=== PATIENT | male | born 1970 | race Hispanic/Latino ===

== ENCOUNTER 2022-02-25 17:16 | Emergency (ER) | payer BC, SELFPAY ==
[2022-02-25] VITALS (13 sets, daily range): BP systolic 153–194; BP diastolic 100–114; PULSE 84–121; RESP 14–25; TEMP 36.4–37.2; O2SAT 95–100
--- NOTE | ~2022-02-25 | CT_ITS ---
EXAMINATION: CT abdomen pelvis wo con DATE: 02/25/2022 20:40 INDICATION: Abdominal pain. TECHNIQUE: Computed tomography (CT) of the abdomen and pelvis was performed without intravenous contr ast. Automated exposure control and iterative reconstruction technique were employed. The dose-length product was 587.41 mGy-cm. COMPARISON: None. FINDINGS: The visualized portions of the lung bases demonstrate mild atelectasis. No pleural effusion . The heart size is normal. No pericardial effusion. The liver is enlarged with innumerable cysts blaise suring up to 15.0 cm. The gallbladder is not identified. The spleen, pancreas, and adrenal glands are normal. Right kidney measures 20.4 x 7.0 x 10.7 cm. Left kidney measures 19.0 x 8.4 x 10.6 cm. There are innumerable cysts and hemorrhagic cysts in the kidneys. There are multiple masses in each kidney measuring soft tissue attenuation measuring up to 2.0 cm on the right that are most likely also hemo rrhagic cysts. There are parenchymal calcifications in the kidneys. There is mild left hydronephrosis . There is diverticulosis of the colon without evidence of diverticulitis. There are no dilated loops of bowel. The appendix is normal in the right femoral canal. There is trace pelvic ascites. There ar e no pathologically enlarged lymph nodes. There is severe lumbar spondylosis. IMPRESSION: 1. Polycystic kidney disease. 2. Mild left hydronephrosis. Reviewed, dictated and finalized at location A. [employer]
--- NOTE | ~2022-02-25 | XR_ITS ---
EXAMINATION: XR chest 2V DATE: 02/25/2022 18:30 INDICATION: Hypertension. TECHNIQUE: Frontal and lateral views of the chest were obtained. COMPARISON: None. FINDINGS: There is mild elevation of right hemidiaphragm. There is mild atelectasis in the lower lung zones. No pleural effusion or pneumothorax. The heart size is normal. There is an old healed fractur e deformity of right clavicle. IMPRESSION: 1. Mild atelectasis in the lower lung zones. Reviewed, dictated and finalized at location A. [employer]
--- NOTE | 2022-02-25 17:42 | ECG_ITS ---
Measurements Intervals [place] Rate: 120 P: -5 [place]: 139 QRS: 104 QRSD: 97 T: -22 QT: 331 QTc: 469 Interpretive Statements SINUS TACHYCARDIA RIGHT AXIS DEVIATION ST-T WAVE ABNORMALITY IN INFERIOR LEADS- CONSIDER ISCHEMIA ABNORMAL ECG NO PREVIOUS ECG AVAILABLE FOR COMPARISON Electronically Signed On 02-25-2022 20:17:56 [employer] by Heladio Solano D.O.
[2022-02-25 17:57] LABS: Basophils Percent Auto 0.3 % (0.2-1.2); Eosinophils Absolute Auto 0.2 K/mm3 (0-0.3); Eosinophils Percent Auto 2.4 % (0-4.4); Hematocrit 45.1 % (42.0-52.0); Hemoglobin 15.1 g/dL (14.0-18.0); Immature Granulocyte Absolute 0.02 K/mm3 (0.00-0.031); Immature Granulocyte Percent A 0.3 % (0-0.5); Mean Corpuscular HGB Conc 33.5 g/dl (32-36); Mean Corpuscular Hemoglobin 28.9 pg (26-34); Mean Corpuscular Volume 86.2 fl (80-100); Mean Platelet Volume 10.4 fl (7.4-10.4); Monocytes Absolute Auto 0.1 K/mm3 (0.1-0.6); Monocytes Percent Auto 1.9 % (2.6-8.5); Neutrophils Percent Auto 89.1 % (45.5-73.1); Platelet Count Result 188 k/mm3 (150-375); Red Blood Count 5.23 M/mm3 (4.6-6.20); Red Cell Distribution Width 13.7 % (11.5-14.5); White Blood Count 6.7 K/mm3 (4.5-10.0)
[2022-02-25 18:08] LABS: Partial Thromboplastin Time 26.6 SECONDS (22.3-36.8); Prothrombin Time 13.2 Seconds (11.1-14.7)
[2022-02-25 18:12] LABS: Alanine Aminotransferase 31 U/L (6-50); Albumin Level 4.4 g/dL (3.5-5.1); Alkaline Phosphatase 116 U/L (38-126); Anion Gap 11 mmol/L (8-16); Aspartate Amino Transferase 34 U/L (17-59); Bilirubin,Total 0.9 mg/dL (0.2-1.3); Blood Urea Nitrogen 21 mg/dL (9-20); Calcium 8.5 mg/dL (8.4-10.2); Carbon Dioxide 21 mmol/L (22-30); Chloride 103 mmol/L (98-107); Estimated CRCL calculation 34 ml/min; Estimated Glomerular Filt Rate 33; Glucose 123 mg/dL (65-110); Lipase 123 U/L (23-300); Potassium 3.8 mmol/L (3.4-5.0); Sodium 135 mmol/L (137-145)
[2022-02-25 18:26] LABS: Troponin I < 0.012 ng/mL (0.000-0.034)
[2022-02-25 19:08] LABS: Appearance Urine Clear (Clear); Bilirubin Urine Negative (Negative); Blood Urine Trace-lysed (Negative); Color Urine Yellow (Yellow); Glucose Urine UA Negative (Negative); Ketones Urine Negative (Negative); Leukocyte Esterase Ur Negative LEU/UL (Negative); Nitrate Urine Negative (Negative); Protein Urine 2+ mg/dL (Negative); Specific Grav Ur 1.015 (1.001-1.035); Urobilinogen Urine 0.2 mg/dL (<2.0); pH Urine 5.5 (5.0-9.0)
[2022-02-25 19:15] LABS: Mucus Urine Rare /lpf; RBC Urine 0-2 /hpf (0-2); Squamous Epithelial Cell Urine Rare /hpf (Few); WBC Urine 0-3 /hpf
[2022-02-25 19:16] LABS: Add Urine Microscopic? YES
[2022-02-25] MEDS: ONDANSETRON INJ 4 MG/2 ML VIAL IV PUSH (20:50)
[2022-02-25] MEDS: SODIUM CHLORIDE 0.9% IV 1,000 ML 999 ML IV CONT (20:55)
[2022-02-25 20:59] LABS: Influenza A QL RT-PCR Negative (Negative); Influenza B QL RT-PCR Negative (Negative); SARS-CoV-2 RNA PCR Negative
[2022-02-25 21:33] LABS: Troponin I < 0.012 ng/mL (0.000-0.034)
--- NOTE | 2022-02-25 22:55 | ED.GENADULT ---
HPI - General Adult General Chief complaint: Unspecified Stated complaint: chills, body aches Time Seen by Provider: 02/25/22 20:19 History of Present Illness HPI narrative: Patient 52-year-old gentleman who presents the emergency department with chief complaint of nausea abdominal discomfort and generalized malaise. The patient states that he has been not feeling well reports he had some nausea chills and body aches. Patient reports he has history of polycystic kidney disease reports that he is noticed his abdomen feels a little bit more uncomfortable. Related Data Home Medications Medication Instructions Recorded Confirmed amlodipine 10 mg tablet 10 mg PO DAILY 02/25/22 lisinopril 20 mg tablet 20 mg PO BID 02/25/22 Allergies Allergy/AdvReac Type Severity Reaction Status Date / Time No Known Allergies Allergy Verified 02/25/22 21:26 Review of Systems Review of Systems: A 10 system review of systems was completed on the patient and is negative except for what is stated in the HPI. Nursing and ancillary documentation was reviewed. Exam Narrative: GENERAL: Well-appearing, well-nourished, and in no acute distress. HEAD: Normocephalic, atraumatic. EYES: PERRLA and EOMI. ENT: Nares clear, no rhinorrhea or epistaxis. Mucous membranes moist. NECK: Supple. CHEST: Clear to auscultation. No respiratory distress. HEART: Regular rate and rhythm. No murmur heard. Normal peripheral pulses. ABDOMEN: Soft, diffuse mild tenderness, nondistended, normal active bowel sounds. EXTREMITIES: Normal range of motion. No edema. SKIN: Warm, dry, no rash. NEURO: No focal deficits. Alert and oriented x3. PSYCH: Normal mood and affect. Course Vital Signs Vital signs: Vital Signs Temperature 36.4 C 02/25/22 17:40 Pulse Rate 121 H 02/25/22 17:40 Respiratory Rate 14 02/25/22 17:40 Blood Pressure 194/114 H 02/25/22 17:40 Pulse Oximetry 97 02/25/22 17:40 Oxygen Delivery Room Air 02/25/22 17:40 Temperature 37.2 C 02/25/22 20:15 Pulse Rate 95 02/25/22 22:46 Respiratory Rate 24 H 02/25/22 22:46 Blood Pressure 157/100 H 02/25/22 22:46 Pulse Oximetry 97 02/25/22 22:46 Oxygen Delivery Room Air 02/25/22 20:51 Medical Decision Making Vital Signs Vital Signs: Vital Signs Temperature 36.4 C 02/25/22 17:40 Pulse Rate 121 H 02/25/22 17:40 Respiratory Rate 14 02/25/22 17:40 Blood Pressure 194/114 H 02/25/22 17:40 Pulse Oximetry 97 02/25/22 17:40 Oxygen Delivery Room Air 02/25/22 17:40 Temperature 37.2 C 02/25/22 20:15 Pulse Rate 95 02/25/22 22:46 Respiratory Rate 24 H 02/25/22 22:46 Blood Pressure 157/100 H 02/25/22 22:46 Pulse Oximetry 97 02/25/22 22:46 Oxygen Delivery Room Air 02/25/22 20:51 Lab Data 02/25/22 17:48 02/25/22 17:48 Labs: Lab Results 02/25/22 02/25/22 02/25/22 Range/Units 17:48 17:48 17:48 WBC 6.7 (4.5-10.0) K/mm3 RBC 5.23 (4.6-6.20) M/mm3 Hgb 15.1 (14.0-18.0) g/dL Hct 45.1 (42.0-52.0) % MCV 86.2 (80-100) fl MCH 28.9 (26-34) pg MCHC 33.5 (32-36) g/dl RDW 13.7 (11.5-14.5) % Plt Count 188 (150-375) k/mm3 MPV 10.4 (7.4-10.4) fl Immature Gran % (Auto) 0.3 (0-0.5) % Neut % (Auto) 89.1 H (45.5-73.1) % Lymph % (Auto) 6.0 L (18.3-44.2) % [place] % (Auto) 1.9 L (2.6-8.5) % Eos % (Auto) 2.4 (0-4.4) % Baso % (Auto) 0.3 (0.2-1.2) % Lymph # (Auto) 0.40 L (0.9-3.2) K/mm3 [place] # (Auto) 0.1 (0.1-0.6) K/mm3 Eos # (Auto) 0.2 (0-0.3) K/mm3 Baso # (Auto) 0.0 (0.0-0.1) K/mm3 Abs Immat Gran (auto) 0.02 (0.00-0.031) K/mm3 Absolute Neuts (auto) 6.0 (1.3-6.7) K/mm3 Absolute Nucleated RBC 0.0 (0.0-0.012) K/mm3 Nucleated RBC % 0.0 (0.0-0.2) % PT 13.2 (11.1-14.7) Seconds INR 1.0 APTT 26.6 (22.3-36.8) SECONDS Sodium 135 L (137-145) mmol/L Potassium 3.8 (3.4-5.0) mmol/L Chlor
== END 2022-02-25 23:16 | disposition home or self-care (01) ==
PROVIDERS: Emergency Medicine; Physician Assistant; Emergency Provider Emergency Medicine
DX: B34.9 Viral infection, unspecified (principal); R10.84 Generalized abdominal pain; R11.2 Nausea with vomiting, unspecified; I10 Essential (primary) hypertension; Z20.822 Contact with and (suspected) exposure to COVID-19
CPT/HCPCS: 36415; 71046; 74176; 80053; 81001; 83690; 84484; 85025; 85610; 85730; 87636; 93005; 96361; 96374; 99284; J2405; J7030